=== PATIENT | female | born 1985 | race Caucasian/White ===

== ENCOUNTER 2017-01-20 12:00 | Emergency (ER) | payer OTHER ==
--- NOTE | 2017-01-20 12:28 | EDM.PDOC ---
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 LMP December 16, 2016. She took 4 tests over the past week, 2 of which were negative and 2 were positive. Patient has not been trying to get but has not been avoiding it. She noticed a cramping to her lower abdomen last evening and was light pink discharge in the afternoon. Throughout the night she had dark red bleeding and is passing small pieces of tissue. The sensation in her abdomen is not unlike her normal menstrual period. Has no previous pregnancies. No burning with urination or urinary frequency. Has not had fever or chills, chest pain shortness of breath or difficulty breathing. Denies nausea and vomiting. Appetite is normal. Has no other complaints or concerns.] Review of systems: As per history of present illness and below otherwise all systems reviewed and negative. Past medical history: As per history of present illness and as reviewed below otherwise noncontributory. Surgical history: As per history of present illness and as reviewed below otherwise noncontributory. Social history: No reported history of drug or alcohol abuse. Family history: As per history of present illness and as reviewed below otherwise noncontributory. Physical exam: HEENT: Atraumatic, normocephalic. mucous membranes moist. neck supple, nontender , trachea midline. Lungs: Clear to auscultation, breath sounds equal bilaterally. Heart: S1S2, regular rate and rhythm. negative for clicks, rubs, or JVD. Abdomen: Soft, nondistended, nontender. Negative for masses or hepatosplenomegaly. Negative for costovertebral tenderness. Pelvis: Stable nontender. Genitourinary: Deferred. Rectal: Deferred. Extremities: Atraumatic, no deformities or abnormalities. Neurovascular unremarkable. Neuro: Awake, alert, oriented. Cranial nerves II through XII unremarkable. Motor and sensory unremarkable throughout. Exam nonfocal. Diagnostics: [ABO/RH, CBC, UA, urine culture, HCG qual, HCG quant, 1st trimester U/S] Impression: [vaginal bleeding] Plan: [Quantitative hCG is 5.9. Discussed with patient that her vaginal bleeding may be her normal menses, or she may have had a very early miscarriage. She is referred to a local OB for followup next week. She understands that she may need a repeat quantitative hCG and this will be determined in followup. She verbalized understanding. All of her questions are answered and concerns are addressed.] Definitive disposition and diagnosis as appropriate pending reevaluation and review of above. - Related Data Allergies/ADRs: Allergies Allergy/AdvReac Type Severity Reaction Status Date / Time No Known Allergies Allergy Verified 01/20/17 12:14 Home Meds: Home Meds PNV95/Ferrous Fumarate/FA [Prenavite Tablet] 1 each PO DAILY 01/20/17 [History] Past Medical History Genitourinary History: Reports: Renal calculus - Past Surgical History Female Surgical History: Reports: Kidney stone extraction Social & Family History - Family History Family Medical History: Noncontributory - Tobacco Use Smoking Status *Q: Current Every Day Smoker Years of Tobacco use: 15 Packs/Tins Daily: 1 - Caffeine Use Caffeine Use: Reports: Coffee Caffeine Use Comment: coffee 1-2 - Recreational Drug Use Recreational Drug Use: No ED ROS GENERAL - Review of Systems Review Of Systems: ROS reveals no pertinent complaints other than HPI. ED EXAM - Physical Exam Exam: See Below Course - Vital Signs Last Recorded V/S: Last Vital Signs Temp 98.8 F 01/20/17 14:18 Pulse 83 01/20/17 14:18 Resp 18 01/20/17 14:18 BP 120/80 01/20/17 14:18 Pulse Ox 97 01/20/17 14:18 - Orders/Labs/Meds Orders: Active Orders 24 hr Category Date Time Status CULTURE URINE [RM] Stat Lab 01/20/17 12:25 Received Labs: Laboratory Tests 01/20/17 01/20/17 01/20/17 Range/Units 12:25 12:25 12:39 WBC 7.52 (4.0-11.0) K/uL RBC 4.36 (4.30-5.90) M/uL Hgb 14.1 (12.0-16.0) g/dL Hct 42.1 (36.0-46.0) % MCV 96.6 (80.0-98.0) fL MCH 32.3 H (27.0-32.0) pg MCHC 33.5 (31.0-37.0) g/dL RDW Std Deviation 44.5 (28.0-62.0) fl RDW Coeff of Francisca 13 (11.0-15.0) % Plt Count 228 (150-400) K/uL MPV 10.70 (7.40-12.00) fL Neut % (Auto) 63.4 (48.0-80.0) % Lymph % (Auto) 24.9 (16.0-40.0) % [place] % (Auto) 8.9 (0.0-15.0) % Eos % (Auto) 2.3 (0.0-7.0) % Baso % (Auto) 0.5 (0.0-1.5) % Neut # (Auto) 4.8 (1.4-5.7) K/uL Lymph # (Auto) 1.9 (0.6-2.4) K/uL Dyer # (Auto) 0.7 (0.0-0.8) K/uL Eos # (Auto) 0.2 (0.0-0.7) K/uL Baso # (Auto) 0.0 (0.0-0.1) K/uL Nucleated RBC % 0.0 /100WBC Nucleated RBCs # 0 K/uL HCG, Quant mIU/mL Urine Color YELLOW Urine Appearance CLEAR Urine pH 6.5 (5.0-8.0) Ur Specific [place] 1.020 (1.001-1.035) Urine Protein NEGATIVE (NEGATIVE) mg/dL Urine Glucose (UA) NEGATIVE (NEGATIVE) mg/dL Urine Ketones NEGATIVE (NEGATIVE) mg/dL Urine Occult Blood LARGE H (NEGATIVE) Urine Nitrite NEGATIVE (NEGATIVE) Urine Bilirubin NEGATIVE (NEGATIVE) Urine Urobilinogen 0.2 (<2.0) EU/dL Ur Leukocyte Esterase NEGATIVE (NEGATIVE) Urine RBC 10-20 (0-2/HPF) Urine WBC 5-10 (0-5/HPF) Ur Epithelial Cells MODERATE (NONE-FEW) Urine Bacteria FEW (NEGATIVE) Urine HCG, Qual NEGATIVE (NEGATIVE) Blood Type 01/20/17 01/20/17 Range/Units 12:39 12:39 WBC (4.0-11.0) K/uL RBC (4.30-5.90) M/uL Hgb (12.0-16.0) g/dL Hct (36.0-46.0) % MCV (80.0-98.0) fL MCH (27.0-32.0) pg MCHC (31.0-37.0) g/dL RDW Std Deviation (28.0-62.0) fl RDW Coeff of Francisca (11.0-15.0) % Plt Count (150-400) K/uL MPV (7.40-12.00) fL Neut % (Auto) (48.0-80.0) % Lymph % (Auto) (16.0-40.0) % [place]yer % (Auto) (0.0-15.0) % Eos % (Auto) (0.0-7.0) % Baso % (Auto) (0.0-1.5) % Neut # (Auto) (1.4-5.7) K/uL Lymph # (Auto) (0.6-2.4) K/uL Dyer # (Auto) (0.0-0.8) K/uL Eos # (Auto) (0.0-0.7) K/uL Baso # (Auto) (0.0-0.1) K/uL Nucleated RBC % /100WBC Nucleated RBCs # K/uL HCG, Quant 5.9 mIU/mL Urine Color Urine Appearance Urine pH (5.0-8.0) Ur Specific [place] (1.001-1.035) Urine Protein (NEGATIVE) mg/dL Urine Glucose (UA) (NEGATIVE) mg/dL Urine Ketones (NEGATIVE) mg/dL Urine Occult Blood (NEGATIVE) Urine Nitrite (NEGATIVE) Urine Bilirubin (NEGATIVE) Urine Urobilinogen (<2.0) EU/dL Ur Leukocyte Esterase (NEGATIVE) Urine RBC (0-2/HPF) Urine WBC (0-5/HPF) Ur Epithelial Cells (NONE-FEW) Urine Bacteria (NEGATIVE) Urine HCG, Qual (NEGATIVE) Blood Type O POSITIVE Departure - Departure Time of Disposition: 13:50 Disposition: Home, Self-Care 01 Condition: good Clinical Impression: Vaginal bleeding Instructions: Threatened Miscarriage Referrals: PCP,None [Primary Care Provider] - Forms: ED Department Discharge Additional Instructions: The following information is given to patients seen in the emergency department who are being discharged to home. This information is to outline your options for follow-up care. We provide all patients seen in our emergency department with a follow-up referral. The need for follow-up, as well as the timing and circumstances, are variable depending upon the specifics of your emergency department visit. If you don't have a primary care physician on staff, we will provide you with a referral. We always advise you to contact your personal physician following an emergency department visit to inform them of the circumstance of the visit and for follow-up with them and/or the need for any referrals to a consulting specialist. The emergency department will also refer you to a specialist when appropriate. This referral assures that you have the opportunity for follow-up care with a specialist. All of these measure are taken in an effort to provide you with optimal care, which includes your follow-up. Under all circumstances we always encourage you to contact your private physician who remains a resource for coordinating your care. When calling for follow-up care, please make the office aware that this follow-up is from your recent emergency room visit. If for any reason you are refused follow-up, please contact the [facility] emergency department at and asked to speak to the emergency department charge nurse. [facility] [address] [place] [id number] Followup with provider at the above listed clinic on Monday or Monday of next week for repeat blood draw. Return to ER as needed and as discussed. - My Orders Last 24 Hours: My Active Orders 01/20/17 12:25 CULTURE URINE [RM] Stat - Assessment/Plan Last 24 Hours: My Active Orders 01/20/17 12:25 CULTURE URINE [RM] Stat
--- NOTE | 2017-01-20 13:34 | US ---
EXAMINATION: Transabdominal and transvaginal obstetric ultrasound HISTORY: Bleeding COMPARISON: None TECHNIQUE: Grayscale, color Doppler, spectral Doppler images obtained transabdominally and transvagi janneth. FINDINGS: The uterus appears normal in size, contour, and echogenicity without a focal uterine mass. There is a trace heterogeneity within the lower endometrium. No abnormal color Doppler flow. No sig nificant free pelvic fluid. The left and right ovaries are normal in size, contour, and echogenicity demonstrating normal color and spectral Doppler flow. No adnexal masses. IMPRESSION: 1. No intrauterine gestational sac identified, correlate with beta hCG levels.
[2017-01-20 14:19] VITALS: BP 120/80
== END 2017-01-20 14:18 | disposition home or self-care (01) ==
LOC: MW.ED 12:00
DX: O20.9 Hemorrhage in early pregnancy, unspecified (principal); O99.331 Smoking (tobacco) complicating pregnancy, first trimester; F17.210 Nicotine dependence, cigarettes, uncomplicated; Z3A.01 Less than 8 weeks gestation of pregnancy
CPT/HCPCS: 36415; 76801; 76801-26; 81001; 81025; 84702; 85025; 86900; 86901; 87086; 99283; 99284-25